=== PATIENT | male | born 2000 | race Caucasian/White ===

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

== ENCOUNTER 2021-01-02 16:43 | Emergency (ER) | payer BC ==
[~2021-01-02] VITALS: Ht 185.4 cm; Wt 90.9 kg
[2021-01-02 17:03] VITALS: BP 155/81
[2021-01-02] MEDS ORDERED: LIDOcaine 1% 30ml preserv. free vial SQ STA (17:09)
[2021-01-02] MEDS ORDERED: CEPH500C5 PO (18:21)
== END 2021-01-02 18:50 | disposition home or self-care (01) ==
LOC: ER 16:44
DX: S61.212A Laceration without foreign body of right middle finger without damage to nail, initial encounter (principal); Z79.899 Other long term (current) drug therapy; W22.8XXA Striking against or struck by other objects, initial encounter; Y93.89 Activity, other specified; Y92.89 Other specified places as the place of occurrence of the external cause; Y99.0 Civilian activity done for income or pay
CPT/HCPCS: 12001; 99283